=== PATIENT | female | born 1985 | race Caucasian/White ===

== ENCOUNTER 2021-07-14 13:36 | Emergency (ER) | payer OTHER ==
[2021-07-14 14:37] LABS: #Eosinphils 0.2 10x3/uL (0.0-0.5); #Monocytes 0.8 10x3/uL (0.0-1.1); #Neutrophils 7.5 10x3/uL (1.5-8.4); %Basophils 0.4 % (0.0-2.0); %Eosinophils 2.3 % (0.0-6.0); %Lymphocytes 16.2 % (18.0-47.0); %Monocytes 7.6 % (0.0-10.0); %Neutrophils 73.2 % (40.0-75.0); Hemoglobin 13.3 g/dL (12.0-15.5); Mean Corpuscular HGB CONC 33.6 g/dL (32.0-36.0); Mean Corpuscular Hemoglobin 30.7 pg (27.0-33.0); Mean Corpuscular Volume 91.5 fl (81.6-98.3); Mean Platelet Volume 9.8 fl (7.4-10.4); Platelet Count 312 10x3/uL (150-450); RBC Distribution Width 12.9 % (11.5-14.5); Red Blood Cell (RBC) Count 4.33 10x6/uL (3.90-5.03); White Blood Cell (WBC) Count 10.2 10x3/uL (3.5-10.5)
[2021-07-14 14:51] LABS: ALT (SGPT) 43 U/L (8-55); AST (SGOT) 32 U/L (5-34); Albumin 4.1 g/dL (3.5-5.0); Alkaline Phosphatase 57 U/L (40-110); Anion Gap 16 mmol/L (10-20); BUN (Urea Nitrogen) 11 mg/dL (7.0-18.7); Bilirubin, Total 0.3 mg/dL (0.2-1.2); Calc. Creatinine Clearance 0 mL/min (70-130); Calcium 10.1 mg/dL (7.8-10.44); Carbon Dioxide 22 mmol/L (22-29); Chloride 103 mmol/L (98-107); Globulin 4.2 g/dL (2.4-3.5); Glucose 110 mg/dL (70-105); Lipase 18 U/L (8-78); Potassium 3.8 mmol/L (3.5-5.1); Protein, Total 8.3 g/dL (6.0-8.3); Sodium 137 mmol/L (136-145)
[2021-07-14] MEDS ORDERED: Morphine 4 MG/ML VIAL ONE (15:07)
[2021-07-14] MEDS ORDERED: Ondansetron PF 4 MG/2 ML Vial ONE (15:07)
[2021-07-14 15:30] LABS: Bilirubin Neg (Negative); Blood, Urine 150 (Negative); Clarity Clear (Clear); Glucose, Urine (Dipstick) Normal (Negative); Ketone, Urine 5 mg/dL (Negative); Leukocyte Negative (Negative); Nitrite Negative (Negative); Protein, Urine (Dipstick) 15 mg/dl (Neg-Trace); Urobilinogen Normal mg/dL (Less than 2); pH, Urine 6.5 (5.0-9.0)
[2021-07-14 15:40] LABS: Bacteria/HPF None Seen HPF (None Seen); Calcium Oxalate Crystals Rare HPF (None Seen); RBC/HPF 21-50 HPF (0-3); WBC/HPF 0-3 HPF (0-3)
== END 2021-07-14 16:37 | disposition home or self-care (01) ==
LOC: CSHERS 13:36
DX: O23.01 Infections of kidney in pregnancy, first trimester (principal); N13.6 Pyonephrosis; E03.9 Hypothyroidism, unspecified; Z3A.13 13 weeks gestation of pregnancy
CPT/HCPCS: 76770; 80053; 81003; 81015; 83690; 84702; 85025; 94760; J2270; J2405

== ENCOUNTER 2021-12-31 07:54 | Outpatient (CLI) | payer SELFPAY | END 2021-12-31 07:55 | disposition home or self-care (01) | LOC: CSHLAB 07:54 | PROVIDERS: ATTEND Student in an Organized Health Care Education/Training Program | DX: Z20.822 Contact with and (suspected) exposure to COVID-19 (principal) | CPT/HCPCS: 87811 ==

== ENCOUNTER 2022-01-01 06:14 | Inpatient (IN) | payer OTHER, SELFPAY ==
[2022-01-01 06:52] VITALS: BMI 38.2
[2022-01-01] MEDS ORDERED: Misoprostol 200 MCG TAB PR PRN (07:25)
[2022-01-01] MEDS ORDERED: Ondansetron PF 4 MG/2 ML Vial IVP PRN ×3 (07:25→14:45)
[2022-01-01] MEDS ORDERED: Lidocaine 1% (PF) 30 ML VIAL SC PRN (07:25)
[2022-01-01] MEDS ORDERED: Butorphanol Tartrate 1 MG/ML VIAL SLOW IVP PRN (07:25)
[2022-01-01] MEDS ORDERED: hydrALAZINE 20 MG/ML VIAL SLOW IVP PRN ×2 (07:25→14:45)
[2022-01-01] MEDS ORDERED: Diphenoxylate HCl/Atropine Tablet PO PRN (07:25)
[2022-01-01] MEDS ORDERED: Acetaminophen 500 MG TAB PO PRN (07:25)
[2022-01-01] MEDS ORDERED: Carboprost 250 MCG/ML AMP IM PRN (07:25)
[2022-01-01] MEDS ORDERED: Ibuprofen 800 MG TAB PO PRN (07:25)
[2022-01-01] MEDS ORDERED: Promethazine HCl 25 MG/ML VIAL IM PRN ×2 (07:25→10:36)
[2022-01-01] MEDS ORDERED: HYDROcodone/Acetaminophen 5/325 mg Tablet PO PRN ×2 (07:25→14:45)
[2022-01-01] MEDS ORDERED: Methylergonovine 0.2 MG/ML VIAL IM PRN (07:25)
[2022-01-01] MEDS ORDERED: NS w/ Oxytocin 30 units 500 ML IV SCH ×3 (07:30→14:45)
[2022-01-01] MEDS: Lactated Ringer's 1,000 ML IV SCH ×2 (07:53→10:44)
[2022-01-01 08:36] LABS: Hemoglobin 12.9 g/dL (12.0-15.5); Mean Corpuscular HGB CONC 33.2 g/dL (32.0-36.0); Mean Corpuscular Volume 96.3 fl (81.6-98.3); Mean Platelet Volume 11.3 fl (7.4-10.4); Platelet Count 222 10x3/uL (150-450); RBC Distribution Width 13.5 % (11.5-14.5); Red Blood Cell (RBC) Count 4.03 10x6/uL (3.90-5.03); White Blood Cell (WBC) Count 10.4 10x3/uL (3.5-10.5)
[2022-01-01 09:10] LABS: Hep B Surf Ag Non-Reactive S/CO (NonReactive); Syphilis Antibody Nonreactive (Nonreactive); Syphilis Antibody Index 0.05 S/CO (<1.00 Non-Reactive)
[2022-01-01] MEDS ORDERED: Fentanyl 2 mcg/Bup 0.1% Cadd 100 ML ONE (09:13)
[2022-01-01 09:22] LABS: HBSAg Index 0.16 S/CO (0-0.99)
[2022-01-01] MEDS ORDERED: Acetaminophen 325 MG TAB PO PRN (10:36)
[2022-01-01] MEDS ORDERED: ePHEDrine Sulfate 50 MG/10 ML VIAL SLOW IVP PRN (10:36)
[2022-01-01] MEDS ORDERED: diphenhydrAMINE 50 MG/ML VIAL IVP PRN (10:36)
[2022-01-01] MEDS ORDERED: Naloxone HCl 0.4 mg/ml Vial IVP PRN ×2 (10:36)
[2022-01-01] MEDS ORDERED: Moisturizing Cream (Eucerin) 113 GM JAR TOP PRN (10:36)
[2022-01-01] MEDS ORDERED: Lactated Ringer's 500 ML IV PRN (10:36)
[2022-01-01] MEDS ORDERED: Fentanyl 2 mcg/Bupivacaine 0.1% Cassette 100 ML EPIDURAL SCH (10:45)
[2022-01-01] MEDS ORDERED: Communication Order-Pharmacy FS SCH (10:45)
[2022-01-01] MEDS ORDERED: Milk Of Magnesia 30 ML UDCUP PO PRN (14:45)
[2022-01-01] MEDS ORDERED: Lanolin Ointment 7 GM TUBE TOP PRN (14:45)
[2022-01-01] MEDS ORDERED: Bisacodyl 10 MG SUPP PR PRN (14:45)
[2022-01-01] MEDS ORDERED: Preparation H Ointment 28 GM TUBE PR PRN (14:45)
[2022-01-01] MEDS ORDERED: Misoprostol 200 MCG TAB VAG PRN (14:45)
[2022-01-01] MEDS: Ibuprofen 800 MG TAB PO SCH (17:40)
[2022-01-01] MEDS: Ferrous Sulfate 325 MG TAB PO SCH (19:31)
[2022-01-01] MEDS: Docusate 100 MG CAP PO SCH (20:46)
[2022-01-02] MEDS: Ibuprofen 800 MG TAB PO SCH ×4 (01:02→18:12)
[2022-01-02] MEDS: Ferrous Sulfate 325 MG TAB PO SCH ×2 (07:17→17:10)
[2022-01-02] MEDS: HYDROcodone/Acetaminophen 5/325 mg Tablet PO PRN ×2 (07:27→11:55)
[2022-01-02] MEDS: Prenatal Vitamin 1 TAB PO SCH (08:29)
[2022-01-02] MEDS: Docusate 100 MG CAP PO SCH ×2 (08:30→21:25)
[2022-01-03] MEDS: Ibuprofen 800 MG TAB PO SCH ×2 (01:48→11:28)
[2022-01-03 07:59] VITALS: BP 138/87; TEMP 97.9
[2022-01-03] MEDS: Ferrous Sulfate 325 MG TAB PO SCH (09:34)
[2022-01-03] MEDS: Docusate 100 MG CAP PO SCH (09:34)
[2022-01-03] MEDS: Prenatal Vitamin 1 TAB PO SCH (09:34)
== END 2022-01-03 13:00 | disposition home or self-care (01) | DRG 807 ==
LOC: CSHLD/OP 06:14 → CSHLD 07:27 → CSHPP 15:00
PROVIDERS: ADMIT Student in an Organized Health Care Education/Training Program; ATTEND Student in an Organized Health Care Education/Training Program
PROC: 10E0XZZ Delivery of Products of Conception, External Approach (ICD-10-PCS; principal; 2022-01-01)
DX: O42.02 Full-term premature rupture of membranes, onset of labor within 24 hours of rupture (principal); Z37.0 Single live birth; Z3A.37 37 weeks gestation of pregnancy; O24.425 Gestational diabetes mellitus in childbirth, controlled by oral hypoglycemic drugs; Z79.84 Long term (current) use of oral hypoglycemic drugs
CPT/HCPCS: 36415; 36416; 51702; 85027; 86780; 86850; 86900; 86901; 87340; 99285; J2590; J7120